=== PATIENT | female | born 1990 | race Caucasian/White ===

== ENCOUNTER → 2021-08-24 | Outpatient (CLI) | payer OTHER ==
[~2021-08-24] MED LIST: DOCU100C37 PO; IBUP-1780 PO; NITR-65 PO; OXYC-556 PO; PREN1TAB79 PO
--- NOTE | 2021-08-24 13:39 | Diagnostic Imaging Report ---
PROCEDURE: US OB SINGLE FETUS <14 WKS. TECHNIQUE: Multiple real-time grayscale images were obtained over the gravid uterus in various projections. INDICATION: Routine care. There is a single live IUP measuring 11 weeks 5 days gestational age. Heart rate is recorded 161 bpm. The placenta is posterior and to the left. Placenta currently was covering internal cervical os. Adnexal fluid volume appears normal. No tiago-gestational sac hemorrhage is seen. Adnexa are unremarkable. IMPRESSION: Single live IUP approximately 11 weeks 5 days gestational age with estimated date of confinement sonographic 03/10/2022. Followup to further evaluate the placenta would be recommended later in 2nd or 3rd trimester. Dictated by: Dictated on workstation # [id number]
== END ==
LOC: RAD 11:00
PROVIDERS: ATTEND Obstetrics & Gynecology
DX: Z36.9 Encounter for antenatal screening, unspecified (principal)
CPT/HCPCS: 76801

== ENCOUNTER → 2022-02-09 | Outpatient (CLI) | payer OTHER | LOC: LABNPT 10:14 | PROVIDERS: ATTEND Obstetrics & Gynecology | DX: O12.13 Gestational proteinuria, third trimester (principal); Z3A.00 Weeks of gestation of pregnancy not specified | CPT/HCPCS: 82570; 84156 ==

== ENCOUNTER → 2022-02-16 | Outpatient (CLI) | payer OTHER | LOC: LABNPT 09:10 | PROVIDERS: ATTEND Obstetrics & Gynecology | DX: R80.9 Proteinuria, unspecified (principal) | CPT/HCPCS: 82570; 84156 ==

== ENCOUNTER 2022-02-22 13:28 | Inpatient (IN) | payer OTHER ==
[2022-02-22] VITALS (31 sets, daily range): BP systolic 80–125; BP diastolic 52–79
[~2022-02-22] VITALS: Ht 180.3 cm; Wt 92.6 kg
[2022-02-22] MEDS ORDERED: PREN1TAB79 PO ×2 (13:49)
[2022-02-22] MEDS ORDERED: D5 LR IV SOLUTION 1,000 ML IV SCH ×2 (14:00→18:00)
[2022-02-22] MEDS ORDERED: CATHETER FLUSH 10 ML SYR IV SCH (14:00)
[2022-02-22] MEDS ORDERED: D5 LR IV SOLUTION 1,000 ML IV ONE (14:03)
[2022-02-22 14:05] LABS: HEMATOCRIT 28 % (35-52); HEMOGLOBIN 8.7 g/dL (11.5-16.0); MEAN CORPUSCULAR HGB CONC 31 g/dL (32-36)
[2022-02-22 14:07] LABS: BASOPHILS # (AUTO) 0.1 10^3/uL (0.0-0.1); BASOPHILS % (AUTO) 0 % (0-10); EOSINOPHILS # (AUTO) 0.2 10^3/uL (0.0-0.3); EOSINOPHILS % (AUTO) 1 % (0-10); LYMPHOCYTES # (AUTO) 1.4 10^3/uL (1.0-4.0); LYMPHOCYTES % (AUTO) 10 % (12-44); MEAN CORPUSCULAR HEMOGLOBIN 25 pg (25-34); MEAN CORPUSCULAR VOLUME 82 fL (80-99); MEAN PLATELET VOLUME 10.5 fL (9.0-12.2); MONOCYTES # (AUTO) 0.7 10^3/uL (0.0-1.0); MONOCYTES % (AUTO) 5 % (0-12); NEUTROPHILS # (AUTO) 11.8 10^3/uL (1.8-7.8); NEUTROPHILS % (AUTO) 81 % (42-75); PLATELET COUNT 231 10^3/uL (130-400); WHITE BLOOD COUNT 14.6 10^3/uL (4.3-11.0)
[2022-02-22 15:44] LABS: BILIRUBIN,URINE NEGATIVE (NEGATIVE); CLARITY,URINE CLEAR; COLOR,URINE YELLOW; GLUCOSE, URINE (UA) NEGATIVE (NEGATIVE); KETONES,URINE NEGATIVE (NEGATIVE); LEUKOCYTE ESTERASE ,URINE NEGATIVE (NEGATIVE); NITRITE,URINE NEGATIVE (NEGATIVE); PROTEIN,URINE 1+ (NEGATIVE)
[2022-02-22 16:07] LABS: BACTERIA,URINE LARGE /HPF; WBC,URINE 0-2 /HPF
[2022-02-22 16:08] LABS: CALCIUM OXALATE CRYSTALS,UR FEW /LPF
[2022-02-22] MEDS ORDERED: CITRIC ACID/SOB CIT (BICITRA) 30 ML UDC ONE (17:37)
[2022-02-22] MEDS ORDERED: CITRIC ACID/SOB CIT (BICITRA) 30 ML UDC PO ONE (17:45)
[2022-02-22] MEDS ORDERED: OXYTOCIN PRE-MIX DRIP 500 ML IV ONE (20:11)
[2022-02-22] MEDS ORDERED: fentaNYL 2 mcg/ml BUPIVA 0.125 100 ML ONE (20:20)
[2022-02-22] MEDS ORDERED: BUPIVACAINE 0.25% 30 ML (SENSORCAINE) VIAL ONE (20:58)
[2022-02-22] MEDS ORDERED: fentaNYL INJ 100 MCG/2 ML AMP ONE (20:58)
--- NOTE | 2022-02-22 21:14 | History & Physical ---
History and Physical Date Seen by Provider: Feb 22, 2022 Time Seen by Provider: 17:50 ExplainedThis patient is a 31-year-old 2 para 1 female currently at 37 weeks gestation who presented with complaint of rupture membranes. She had rupture membranes about 7 AM. She presented in the late afternoon. She had called the office and had been directed to go to labor and delivery but she quit leaking after the first major gush so she was not quite sure so she just did not go to labor and delivery later in the day when she had another big gush and called again and then she finally decided to come to labor and delivery. Patient has had no problems with this . She did have a GBS culture that was negative. Allergies are none Medications are vitamins Medical social and surgical history is all per the antepartum record HEENT exam is normal Neck is supple with no lymphadenopathy no thyromegaly Abdomen is gravid soft nontender nondistended Extremities show no clubbing cyanosis. There is no Homans' sign. Pelvic exam per the labor delivery nurse showed a cervix about 4 cm on admission about an hour ago she was found to be 6 cm. She was josé somewhat irregularly Laboratory Tests Test 02/22/22 13:55 02/22/22 15:00 Range/Units White Blood Count 14.6 H 4.3-11.0 10^3/uL Red Blood Count 3.43 L 3.80-5.11 10^6/uL Hemoglobin 8.7 L 11.5-16.0 g/dL Hematocrit 28 L 35-52 % Mean Corpuscular Volume 82 80-99 fL Mean Corpuscular Hemoglobin 25 25-34 pg Mean Corpuscular Hemoglobin Concent 31 L 32-36 g/dL Red Cell Distribution Width 16.2 H 10.0-14.5 % Platelet Count 231 130-400 10^3/uL Mean Platelet Volume 10.5 9.0-12.2 fL Immature Granulocyte % (Auto) 3 % Neutrophils (%) (Auto) 81 H 42-75 % Lymphocytes (%) (Auto) 10 L 12-44 % Monocytes (%) (Auto) 5 0-12 % Eosinophils (%) (Auto) 1 0-10 % Basophils (%) (Auto) 0 0-10 % Neutrophils # (Auto) 11.8 H 1.8-7.8 10^3/uL Lymphocytes # (Auto) 1.4 1.0-4.0 10^3/uL Monocytes # (Auto) 0.7 0.0-1.0 10^3/uL Eosinophils # (Auto) 0.2 0.0-0.3 10^3/uL Basophils # (Auto) 0.1 0.0-0.1 10^3/uL Immature Granulocyte # (Auto) 0.5 H 0.0-0.1 10^3/uL Percent Immature Platelet Fraction 6.0 0.0-7.6 % Urine Color YELLOW Urine Clarity CLEAR Urine pH 6.0 5-9 Urine Specific [place] >=1.030 1.016-1.022 Urine Protein 1+ H NEGATIVE Urine Glucose (UA) NEGATIVE NEGATIVE Urine Ketones NEGATIVE NEGATIVE Urine Nitrite NEGATIVE NEGATIVE Urine Bilirubin NEGATIVE NEGATIVE Urine Urobilinogen 1.0 < = 1.0 MG/DL Urine Leukocyte Esterase NEGATIVE NEGATIVE Urine RBC (Auto) NEGATIVE NEGATIVE Urine RBC NONE /HPF Urine WBC 0-2 /HPF Urine Squamous Epithelial Cells 10-25 H /HPF Urine Crystals PRESENT H /LPF Urine Calcium Oxalate Crystals FEW H /LPF Urine Bacteria LARGE H /HPF Urine Casts NONE /LPF Urine Mucus MODERATE H /LPF Urine Culture Indicated NO Hemoglobin is 8.7 which Is likely consistent with a significant degree of d ilution. Assessment and plan 37-week gestation with spontaneous rupture membranes.Patient was admittedInitially with plan for expectant management however if she has shown progress we will augment with Pitocin anticipate a vaginal delivery 37 weeks with spontaneous rupture membranes Allergies and Home Medications Allergies Coded Allergies: No Known Drug Allergies (Unverified , 05/07/15) Patient Home Medication List Home Medication List Reviewed: Yes Vit W-Ca,Fe,FA(<1 mg) ( Vitamins) 27 Mg Iron-800 Mcg Tablet, 1 EACH PO DAILY, (Reported) Entered as Reported by: AUBREE VALLEJO on 02/22/22 5256 Last Action: New Order KASSI WEBB MD Feb 22, 2022 21:14
--- NOTE | 2022-02-22 21:21 | Discharge Inst-Surgical ---
Discharge Inst-Surgical Depart Medication/Instructions New, Converted or Re-Newed RX: Transmitted to Pharmacy Consults/Follow Up Patient Instructions: As directed Orders & Referrals Follow Up Appt: Call to make follow up appt. for patient in 4 weeks. Activity Per routine post vaginal delivery instructions. Prescriptions have been transmitted to patient pharmacy from my clinic Diet as tolerated Patient may shower or tub bathe as desired. Activity Activity as Tolerated: No Diet Discharge Diet: No Restrictions KASSI WEBB MD Feb 22, 2022 21:21
[2022-02-22] MEDS ORDERED: EPIDURAL (fentaNYL 2 MCG/ML BUPIVA 0.125%)100 ML BAG EPI PRN (21:45)
[2022-02-22] MEDS ORDERED: diphenhydrAMINE 50 MG/ML INJ (BENADRYL) IV PRN (21:45)
[2022-02-22] MEDS ORDERED: NALOXONE 0.4 MG/ML 1 ML (NARCAN) VIAL IV PRN ×2 (21:45)
[2022-02-22] MEDS ORDERED: LACTATED RINGERS 1,000 ML IV SCH (21:45)
[2022-02-22] MEDS ORDERED: METOCLOPRAMIDE INJ 10 MG/2 ML (REGLAN) IV PRN (21:45)
[2022-02-22] MEDS ORDERED: ONDANSETRON 4 MG/2 ML (SDV) Z0FRAN IV PRN (21:45)
[2022-02-22] MEDS: LIDOCAINE/EPI 2% 1:200,00 (XYLOCAINE) 10 ML VIAL ONE (23:59)
[2022-02-23] VITALS (9 sets, daily range): BP systolic 90–106; BP diastolic 52–61
[2022-02-23] MEDS ORDERED: ceFAZolin 2 GM IV Premixed 50 ML IV ONE (01:00)
[2022-02-23] MEDS ORDERED: KETOROLAC 30 MG/ML VIAL ONE (01:38)
[2022-02-23] MEDS ORDERED: OXYTOCIN PRE-MIX DRIP 500 ML IV SCH ×2 (02:00→05:00)
[2022-02-23] MEDS ORDERED: oxyCODONE/APAP 5/325MG (PERCOCET 5) TABLET PO PRN (02:00)
[2022-02-23] MEDS ORDERED: TETANUS,DIPTH,PERTUSS P/F (BOOSTRIX) 0.5 ML VIAL IM ONE (02:00)
[2022-02-23] MEDS ORDERED: BENZOCAINE/MENTHOL (DERMOPLAST) 56 ML CAN TP PRN (02:00)
[2022-02-23] MEDS ORDERED: ONDANSETRON 4 MG/2 ML (SDV) Z0FRAN IVP PRN (02:00)
[2022-02-23] MEDS ORDERED: KETOROLAC 30 MG/ML VIAL IVP SCH (02:00)
[2022-02-23] MEDS ORDERED: IBUPROFEN 800 MG (MOTRIN) TAB PO SCH (08:00)
[2022-02-23] MEDS: DOCUSATE SODIUM 100 MG (COLACE) CAP PO SCH ×2 (08:14→20:06)
[2022-02-23] MEDS ORDERED: WITCH HAZEL(TUCKS) 40 EA JAR TOP PRN (08:30)
[2022-02-23] MEDS: LIDOCAINE/EPI 2% 1:200,00 (XYLOCAINE) 10 ML VIAL ONE (10:10)
--- NOTE | 2022-02-23 13:14 | OPERATIVE REPORT ---
DATE OF SERVICE: 02/22/2022 DELIVERY NOTE The patient delivered by term spontaneous vaginal delivery a viable female infant with Apgars of 7 and 8 at 1 and 5 minutes respectively, weight of 7 pounds 12 ounces. time of 11:59 p.m. and a cord blood pH of 7.2. The infant was delivered over a first-degree perineal laceration under epidural analgesia. The was bulb suctioned on delivery of the head and again on completion of delivery. Umbilical cord when pulseless was doubly clamped. The father cut the cord. The baby was passed to mom's abdomen. Cord bloods were obtained. The placenta delivered fairly promptly spontaneously [place]. It was associated with large amount of clots and port-wine fluid consistent with some degree of placental abruption. The cervix, vagina, rectum, and perineum were examined and there was a first-degree perineal laceration and a first-degree periurethral laceration. Both of these lacerations were repaired with a single suture of 3-0 Vicryl Rapide under the epidural analgesia. Sponge and needle counts were correct after delivery and repair. Blood loss was around 500 mL, but this would include blood loss associated with the apparent abruption. The patient tolerated the delivery and the repair well and remained in the LDR. The baby remained with the mom. Job ID: [id number] DocumentID: [id number] Dictated Date: 02/23/2022 08:09:55 Relief Operator Date: 02/23/2022 13:13:20 Dictated By: KASSI WEBB MD
[2022-02-23] MEDS: IBUPROFEN 800 MG (MOTRIN) TAB PO SCH ×2 (14:15→20:06)
[2022-02-24] MEDS: IBUPROFEN 800 MG (MOTRIN) TAB PO SCH ×2 (02:43→09:48)
[2022-02-24 02:49] VITALS: BP 104/55
--- NOTE | 2022-02-24 03:03 | Progress Note ---
Standard Progress Note Progress Notes/Assess & Plan Date Seen by a Provider: Feb 23, 2022 Time Seen by a Provider: 08:00 Progress/Assessment & Plan This is a late entry for this patient who was seen at 8 AM on February 23. At that time patient was ambulating, voiding, tolerating oral intake well and had good pain control. She was stable after delivery. Patient had no complaints. VS - Last 72 Hours, by Label 02/22/22 02/22/22 02/22/22 02/22/22 13:17 14:00 14:15 14:45 Temp 37.0 37.0 Pulse 121 121 101 108 Resp 18 18 18 18 B/P (MAP) 100/59 (73) 111/70 (84) 109/66 (80) Pulse Ox 98 98 O2 Delivery Room Air Room Air Room Air Room Air 02/22/22 02/22/22 02/22/22 02/22/22 15:15 15:45 16:00 16:00 Temp 37.0 37.0 Pulse 99 82 94 121 Resp 18 18 18 18 B/P (MAP) 104/70 (81) 111/70 (84) 105/69 (81) Pulse Ox 98 O2 Delivery Room Air Room Air Room Air Room Air 02/22/22 02/22/22 02/22/22 02/22/22 16:30 17:00 17:30 18:00 Temp 36.8 Pulse 113 91 88 88 Resp 18 18 18 18 B/P (MAP) 96/55 (69) 103/62 (76) 110/68 (82) 114/71 (85) Pulse Ox 100 O2 Delivery Room Air Room Air Room Air Room Air 02/22/22 02/22/22 02/22/22 02/22/22 18:30 19:00 19:30 20:00 Temp 37.1 Pulse 87 92 106 106 Resp 18 18 18 18 B/P (MAP) 119/73 (88) 104/63 (77) 104/63 (77) 118/58 (78) O2 Delivery Room Air Room Air Room Air Room Air 02/22/22 02/22/22 02/22/22 02/22/22 20:30 20:45 21:00 21:15 Pulse 106 93 115 115 Resp 18 18 18 18 B/P (MAP) 115/67 (83) 117/71 (86) 121/76 (91) 125/79 (94) Pulse Ox 93 100 O2 Delivery Room Air Room Air Room Air Room Air 02/22/22 02/22/22 02/22/22 02/22/22 21:21 21:24 21:27 21:30 Pulse 96 93 102 92 Resp 18 18 18 18 B/P (MAP) 110/65 (80) 115/66 (82) 111/67 (82) 112/67 (82) Pulse Ox 100 100 99 97 O2 Delivery Room Air Room Air Room Air Room Air 02/22/22 02/22/22 02/22/22 02/22/22 21:35 21:40 21:45 22:00 Temp 36.8 Pulse 108 102 86 84 Resp 18 18 18 18 B/P (MAP) 119/73 (88) 118/70 (86) 115/70 (85) 80/57 (65) Pulse Ox 99 99 99 99 O2 Delivery Room Air Room Air Room Air Room Air 02/22/22 02/22/22 02/22/22 02/22/22 22:15 22:30 22:45 23:00 Pulse 77 85 80 112 Resp 18 18 18 18 B/P (MAP) 107/61 (76) 94/52 (66) 87/52 (64) 89/52 (64) Pulse Ox 98 O2 Delivery Room Air Room Air Room Air Room Air 02/23/22 02/23/22 02/23/22 02/23/22 00:15 00:30 00:45 01:00 Temp 36.8 36.7 37.1 37.0 Pulse 105 96 92 Resp 18 18 18 18 B/P (MAP) 102/54 (70) 101/58 (72) 98/56 (70) O2 Delivery Room Air Room Air Room Air Room Air 02/23/22 02/23/22 02/23/22 02/23/22 01:15 05:06 08:15 12:30 Temp 37.0 36.7 36.3 36.4 Pulse 79 80 78 84 Resp 18 18 18 18 B/P (MAP) 106/60 (75) 90/52 (65) 104/61 (75) 102/57 (72) Pulse Ox 97 98 100 O2 Delivery Room Air Room Air Room Air Room Air 6/21/22 6/21/22 6/22/22 16:30 20:05 02:49 Temp 36.3 36.8 36.2 Pulse 85 92 70 Resp 18 18 16 B/P (MAP) 102/58 (73) 96/60 (72) 104/55 (71) Pulse Ox 100 99 99 O2 Delivery Room Air Room Air Room Air Vital signs were stable patient was afebrile. Fundus was firm below the umbilicus and nontender Extremities show no clubbing cyanosis there was no Homans' sign. Assessment and plan day #1 status post term spontaneous vaginal livery doing well. Plan is for routine convalescent care Final Diagnosis 37-week spontaneous vaginal delivery KASSI WEBB MD Feb 24, 2022 03:03
--- NOTE | 2022-02-24 08:16 | Progress Note ---
Standard Progress Note Progress Notes/Assess & Plan Date Seen by a Provider: Feb 24, 2022 Time Seen by a Provider: 08:15 Progress/Assessment & Plan This is a late entry for this patient who was seen at 8 AM on February 23. At that time patient was ambulating, voiding, tolerating oral intake well and had good pain control. She was stable after delivery. Patient had no complaints. VS - Last 72 Hours, by Label 02/22/22 02/22/22 02/22/22 02/22/22 13:17 14:00 14:15 14:45 Temp 37.0 37.0 Pulse 121 121 101 108 Resp 18 18 18 18 B/P (MAP) 100/59 (73) 111/70 (84) 109/66 (80) Pulse Ox 98 98 O2 Delivery Room Air Room Air Room Air Room Air 02/22/22 02/22/22 02/22/22 02/22/22 15:15 15:45 16:00 16:00 Temp 37.0 37.0 Pulse 99 82 94 121 Resp 18 18 18 18 B/P (MAP) 104/70 (81) 111/70 (84) 105/69 (81) Pulse Ox 98 O2 Delivery Room Air Room Air Room Air Room Air 02/22/22 02/22/22 02/22/22 02/22/22 16:30 17:00 17:30 18:00 Temp 36.8 Pulse 113 91 88 88 Resp 18 18 18 18 B/P (MAP) 96/55 (69) 103/62 (76) 110/68 (82) 114/71 (85) Pulse Ox 100 O2 Delivery Room Air Room Air Room Air Room Air 02/22/22 02/22/22 02/22/22 02/22/22 18:30 19:00 19:30 20:00 Temp 37.1 Pulse 87 92 106 106 Resp 18 18 18 18 B/P (MAP) 119/73 (88) 104/63 (77) 104/63 (77) 118/58 (78) O2 Delivery Room Air Room Air Room Air Room Air 02/22/22 02/22/22 02/22/22 02/22/22 20:30 20:45 21:00 21:15 Pulse 106 93 115 115 Resp 18 18 18 18 B/P (MAP) 115/67 (83) 117/71 (86) 121/76 (91) 125/79 (94) Pulse Ox 93 100 O2 Delivery Room Air Room Air Room Air Room Air 02/22/22 02/22/22 02/22/22 02/22/22 21:21 21:24 21:27 21:30 Pulse 96 93 102 92 Resp 18 18 18 18 B/P (MAP) 110/65 (80) 115/66 (82) 111/67 (82) 112/67 (82) Pulse Ox 100 100 99 97 O2 Delivery Room Air Room Air Room Air Room Air 02/22/22 02/22/22 02/22/22 02/22/22 21:35 21:40 21:45 22:00 Temp 36.8 Pulse 108 102 86 84 Resp 18 18 18 18 B/P (MAP) 119/73 (88) 118/70 (86) 115/70 (85) 80/57 (65) Pulse Ox 99 99 99 99 O2 Delivery Room Air Room Air Room Air Room Air 02/22/22 02/22/22 02/22/22 02/22/22 22:15 22:30 22:45 23:00 Pulse 77 85 80 112 Resp 18 18 18 18 B/P (MAP) 107/61 (76) 94/52 (66) 87/52 (64) 89/52 (64) Pulse Ox 98 O2 Delivery Room Air Room Air Room Air Room Air 02/23/22 02/23/22 02/23/22 02/23/22 00:15 00:30 00:45 01:00 Temp 36.8 36.7 37.1 37.0 Pulse 105 96 92 Resp 18 18 18 18 B/P (MAP) 102/54 (70) 101/58 (72) 98/56 (70) O2 Delivery Room Air Room Air Room Air Room Air 02/23/22 02/23/22 02/23/22 02/23/22 01:15 05:06 08:15 12:30 Temp 37.0 36.7 36.3 36.4 Pulse 79 80 78 84 Resp 18 18 18 18 B/P (MAP) 106/60 (75) 90/52 (65) 104/61 (75) 102/57 (72) Pulse Ox 97 98 100 O2 Delivery Room Air Room Air Room Air Room Air 6/21/22 6/21/22 6/22/22 16:30 20:05 02:49 Temp 36.3 36.8 36.2 Pulse 85 92 70 Resp 18 18 16 B/P (MAP) 102/58 (73) 96/60 (72) 104/55 (71) Pulse Ox 100 99 99 O2 Delivery Room Air Room Air Room Air Vital signs were stable patient was afebrile. Fundus was firm below the umbilicus and nontender Extremities show no clubbing cyanosis there was no Homans' sign. Assessment and plan day #1 status post term spontaneous vaginal livery doing well. Plan is for routine convalescent care February 24, 2022 Patient is in the shower. I plan to return later today to round. Patient's reports she is doing well has no complaints is ambulating has good pain control and is considering discharge home today. We did discuss discharge today or tomorrow as she prefers Vital Signs Date Time Temp Pulse Resp B/P (MAP) Pulse Ox O2 Delivery O2 Flow Rate FiO2 02/24/22 02:49 36.2 70 16 104/55 (71) 99 Room Air 02/23/22 20:05 36.8 92 18 96/60 (72) 99 Room Air 02/23/22 16:30 36.3 85 18 102/58 (73) 100 Room Air 02/23/22 12:30 36.4 84 18 102/57 (72) 100 Room Air Vital signs are stable. Patient is afebrile. Physical exam is deferred Assessment and plan day 1+ status post 37-week spontaneous vaginal livery doing well. Plan is for routine convalescent care Final Diagnosis 37-week spontaneous vaginal delivery KASSI WEBB MD Feb 24, 2022 08:16
[2022-02-24 09:30] VITALS: BP 102/68
[2022-02-24] MEDS: DOCUSATE SODIUM 100 MG (COLACE) CAP PO SCH (09:48)
[2022-02-24 13:15] VITALS: BP 105/51
[2022-02-24 14:25] VITALS: BP 105/51
--- NOTE | 2022-02-24 16:55 | Anesthesia-Regional Post-Op ---
Regional Patient Condition Mental Status: Alert, Oriented x3 Circulation: Same as Pre-Op Headache: Absent Sensation: Full Recovery Motor Block: Absent Post Op Complications Complications None Follow Up Care/Instructions Patient Instructions None needed. Anesthesia/Patient Condition Patient is already discharged to home but she was doing well with no complaints, stable vital signs, no apparent adverse anesthesia problems prior to her discharge. No complications reported per nursing. LIEN PIPER DO Feb 24, 2022 16:55
[2022-02-28] MEDS ORDERED: IBUPROFEN 800 MG (MOTRIN) TAB PO SCH
== END 2022-02-24 14:25 | disposition home or self-care (01) | DRG 807 ==
LOC: WSo 13:28 → LDRP 13:28 → WSo 13:47 → LDRP 13:47
PROVIDERS: ADMIT Obstetrics & Gynecology; ATTEND Obstetrics & Gynecology
PROC: 10E0XZZ Delivery of Products of Conception, External Approach (ICD-10-PCS; principal; 2022-02-23)
PROC: 0HQ9XZZ Repair Perineum Skin, External Approach (ICD-10-PCS; 2022-02-23)
PROC: 0UQMXZZ Repair Vulva, External Approach (ICD-10-PCS; 2022-02-23)
DX: O45.93 Premature separation of placenta, unspecified, third trimester (principal); Z37.0 Single live birth; Z3A.37 37 weeks gestation of pregnancy; O70.0 First degree perineal laceration during delivery; O71.82 Other specified trauma to perineum and vulva
CPT/HCPCS: 36415; 81000; 85025; 86850; 86870; 86900; 86901